=== PATIENT | male | born 1980 | race African-American/Black ===

== ENCOUNTER 2021-05-27 20:09 | Emergency (ER) | payer MEDICAID ==
[~2021-05-27] VITALS: Ht 165.1 cm; Wt 125.0 kg
[~2021-05-27 20:09] MED LIST: ARIP10TA33 PO; BENZ1TAB61 PO; OLAN5TAB69 PO; QUET25TA7 PO; TRAZ50TA66 PO
--- NOTE | 2021-05-27 20:12 | NUR ---
PT BROUGT IN BY LAW ENFORCEMENT FOR MEDICAL CLEARANCE, PT HAS NO COMPLAINTS, PT DENIES SI/SH AT THIS TIME
[2021-05-27 20:13] VITALS: BP 130/89
--- NOTE | 2021-05-27 20:20 | NUR ---
THIS RN PUT ON A BLOOD PRESSURE CUFF AND A PULSE OX ON THE PT AND PT STARTED TO SAY DONT TOUCH ME AFTER THEY WERE APPLIED, PT STARTED TO GET AGRIVATED AND STATED, "DONT TOUCH ME, I DONT DO NONE OF THAT OCHOA SHIT", THIS RN STATED THAT THIS RN WASNT TOUCHING PT, PT NAD AT THIS TIME
--- NOTE | 2021-05-27 20:31 | NUR ---
PT REQUESTED SOMETHING TO EAT AND DRINK, PT GIVEN CRACKERS AND WATER, PT COOPERATIVE AT THIS TIME AND SAID THANK YOU
--- NOTE | 2021-05-27 20:39 | NUR ---
PT EVALUATED BY ER MD, PT CLEARED FOR DISHCARGE, PT HAD NO COMPLAINTS OF PAIN OR DISCOMFORT ANYWHERE, PTS ONLY REQUEST WAS FOR SOMETHING TO EAT AND DRINK
--- NOTE | 2021-05-27 20:47 | NUR ---
PT ASKED FOR MORE CRACKERS AND SOME JUICE UPON DISCHARGE WHICH THIS RN PROVIDED, THIS RN ALSO GAVE PT A BUS PAS
== END 2021-05-27 20:49 | disposition home or self-care (01) ==
LOC: ED 20:15
DX: F22 Delusional disorders (principal); R45.850 Homicidal ideations; Z72.9 Problem related to lifestyle, unspecified
CPT/HCPCS: 99284

== ENCOUNTER 2021-06-15 18:22 | Emergency (ER) | payer MEDICAID ==
[~2021-06-15] VITALS: Ht 167.6 cm; Wt 55.0 kg
--- NOTE | 2021-06-15 18:29 | NUR ---
THIS IS A 41 YEAR OLD MALE WHO WAS SENT BY [employer] DUE TO BEING PLACED ON A LEGAL HOLD FOR NOT [facility]OPERATING [place] [facility] [place]. PT COOPERATIVE, STATES HE IS PLANNING TO GO DOWNTOWN AND HAVING A DRINK WHEN DISCHARGED. AT BS. ORDERED MEAL
--- NOTE | 2021-06-15 18:57 | NUR ---
ED RN to ED RN handoff received from LAKESHA Austin. Pharmacy request for anali sent at [phone]
[2021-06-15] MEDS ORDERED: ARIPIPRAZOLE 10 MG TABLET PO ONE (19:00)
[2021-06-15 19:14] VITALS: BP 118/80
--- NOTE | 2021-06-15 19:14 | NUR ---
NURSING HANDOFF REPORT RECEIVED FROM LAKESHA WELLS PT EATING MEAL. ABILIFY GIVEN. WILL D/C AFTER MEAL
--- NOTE | 2021-06-15 19:52 | NUR ---
Pt initially refused to take off hospital gown and change, stated "Get away from me! I'm pimpin' in this right now!" Security called and on standby, but pt did change out of gown and into his own clothes prior to leaving peacefully with discharge instructions and prescription
== END 2021-06-15 20:07 | disposition home or self-care (01) ==
LOC: ED 18:27
DX: F20.9 Schizophrenia, unspecified (principal)
CPT/HCPCS: 99283